=== PATIENT | female | born 2000 | race Caucasian/White ===

== ENCOUNTER 2024-07-19 09:23 | Inpatient (IN) ==
[2024-07-19] MEDS ORDERED: LACTATED RINGER'S 1,000 ML IV PRN (11:17)
--- NOTE | 2024-07-19 11:20 | History & Physical Report ---
Date of Service July 19, 2024 Assessment & Plan (1) Supervision of normal intrauterine in primigravida: Plan: Admit for active labor. IV access, labs, EFM/toco. Is not planning for epidural - would like to proceed with minimal intervention if possible. History of Present Illness Chief Complaint: contractions Primary Care Provider: NO PCP 24yo @ 36 4/, presented to L&D with contractions, increasing overnight. + movement, no vaginal bleeding, no leaking fluid. Allergies Allergy/AdvReac Type Severity Reaction Status Date / Time pollen extracts Allergy Verified 07/16/24 08:47 Home Medications Medication Instructions Recorded Confirmed Type lactobacillus combination no.4 3 3,000 mmu cells PO DAILY 07/19/24 07/19/24 History billion cell capsule (Probiotic) vits no.124-ferrous fum 1 tab PO DAILY 07/19/24 07/19/24 History 27 mg iron-folic acid 800 mcg tablet ( Vitamin) Patient History Surgical History H/O wisdom tooth extraction Family History Grandfather (Paternal) Myocardial infarction Grandfather (Maternal) Myocardial infarction Denies family history of Ovarian cancer Prostate cancer Breast cancer Colorectal cancer Social History (Updated 07/19/24 @ 09:36 by Hailey Stevens RN) Smoking Status: Never smoker Second Hand Exposure: No; Do You Dip or Chew Tobacco: No; Hx Alcohol Use: No Hx Substance Use: No Preferred Language: [place] Communication Ability: Effective Visual Impairment: No Limitations Hearing Ability: Normal Et[employer] Required: No Beliefs That Will Affect Care: None marital status: marital status details: Young (25) [phone] Current Living Situation: Spouse Current Living Situation Comment: lives with spouse, no pets current occupational status: employed current occupation: associate marketing manager Other Information That Helps Us Care for You: No Feels Safe at Home: Yes Safety Concerns: Feels Safe At This Time Childhood Exposure to Second-Hand Smoke: No Diet: regular Dental Care, Regularly: Yes Gender Identity: Female Assistive Devices: Glasses Review of Systems All systems reviewed & are unremarkable except as noted in HPI & below Physical Exam Physical Exam: 3-4cm cervix by RN on arrival, recheck 1 .5h later 5-6/100/-1 cephalic by myself. FHT Cat 1 [place] Q 2-3 Constitutional: WD/WN, vitals as above Respiratory: normal respiratory effort, lungs clear to auscultation no respiratory distress Cardiovascular: Rate/Rhythm: regular rate and regular rhythm Gastrointestinal (Abdomen): Inspection/Auscultation: abdomen normal to inspection Percussion/Palpation: abdomen soft; abdomen nontender Gravid. No s/s chorio or abruption. Skin: no rashes, warm and dry Psychiatric: A+Ox3, euthymic affect Results & Data Vital Signs (Past 12 Hours) Vital Signs Temp Pulse Resp BP 07/19/24 09:38 36.8 C 63 20 130/75 07/19/24 09:31 63 130/75 Coding Level of Care Code None Diagnoses Supervision of normal intrauterine in primigravida Z34.00
[2024-07-19 11:54] LABS: Hematocrit (blood only) 33.7 % (37.0-47.0); Mean Corpuscular Hemoglobin 31.6 pg (25.0-34.0); Mean Corpuscular Hgb Conc 35.6 g/dL (32.0-36.0); Mean Corpuscular Volume 88.7 fL (80.0-100.0); Mean Platelet Volume 12.9 fL (9.4-12.4); Platelet Count 161 K/uL (130-400); Platelet Estimate Normal (Normal); RDW Coefficient of Variation 11.4 % (11.5-14.5); RDW Standard Deviation 36.7 fL (36.4-46.3); White Blood Count 13.94 K/ul (4.8-10.8)
--- NOTE | 2024-07-19 12:32 | Labor Progress Brief Note ---
Date of Service July 19, 2024 Subjective Uncomfortable with contractions. FHT Cat 1 [place] Q 2-3 SVE 6-7/100/-1 AROM clear fluid. Assessment & Plan Admission and Anticipated Discharge Date Admission Date: July 19, 2024 Results & Data Vital Signs (Past 12 Hours) Vital Signs Temp Pulse Resp BP 07/19/24 12:11 87 20 07/19/24 12:11 128/62 07/19/24 09:38 36.8 C 63 20 130/75 07/19/24 09:31 63 130/75 Coding Level of Care Code None
[2024-07-19] MEDS: OXYTOCIN 30 UNITS/NSS 30 UNITS/500 ML BAG IV PRN (13:33)
[2024-07-19] MEDS: LIDOCAINE 1% LOCAL 20 ML VIAL INFIL PRN (13:36)
--- NOTE | 2024-07-19 13:55 | Delivery Summary ---
Vaginal Delivery Summary Date of Service July 19, 2024 Vaginal Delivery Summary and 2nd Degree LAC Vaginal Delivery Summary: Pre-delivery diagnoses: 24yo @ 36 06/29, spontaneous labor Post-delivery diagnoses: same Procedure: spontaneous vaginal delivery Surgeon: Maria E Jerome DO Complications: none Findings: Viable male . Apgars: . Weight pending, please see nursery records Estimated blood loss: Description of delivery: The patient progressed to complete without epidural anesthesia. She then began to push in knee/chest position per her request. She spontaneously vaginally delivered a viable from the cephalic presentation. The head delivered in [place] position, compound hand delivery. The anterior shoulder delivered, followed by the posterior shoulder, followed by the body. The baby was maneuvered through mother's legs and handed to mother and a spontaneous cry was heard. Delayed cord clamping was employed, and the cord was doubly clamped and cut. Cord blood was obtained. The placenta was delivered spontaneously intact with a 3-vessel cord. The uterus and vagina were swept of clots and debris. IV pitocin was given. The uterus became firm. The cervix, vagina, and perineum were inspected and 2nd degree perineal laceration was noted, 1% lidocaine was injected at the site, and repaired with 3-0 Vicryl. Excellent hemostasis was observed. The mother and baby are recovering in stable and good condition in the room. Sponge, needle and instrument counts were correct x 2. Maria E Jerome DO [facility] Vaginal Delivery Charge Vaginal Delivery Codes: 08240 global code for the antepartum, delivery, and post- Delivery Type Details: and 2nd Degree LAC
[2024-07-19] MEDS ORDERED: HYDROCORTISONE ACETATE 25 MG SUPP PR PRN (14:22)
[2024-07-19] MEDS ORDERED: OXYTOCIN 30 UNITS/NSS 30 UNITS/500 ML BAG IV PRN (14:22)
[2024-07-19] MEDS ORDERED: ACETAMINOPHEN 325 MG TAB PO PRN (14:22)
[2024-07-19] MEDS ORDERED: oxyCODONE/ACETAMINOPHEN 5mg/325mg TAB PO PRN (14:22)
[2024-07-19] MEDS ORDERED: bisacodyL 10 MG SUPP PR PRN (14:22)
[2024-07-19] MEDS: IBUPROFEN 600 MG TAB PO PRN (14:36)
[2024-07-19] MEDS: DIPHTHER/TETAN/PERTUS Vaccine (Tdap, Adol/Adult) 0.5mL IM ONE (15:23)
[2024-07-19] MEDS: BENZOCAINE 20% SPRY 85 APPLN/85 GM CAN EXT PRN (16:27)
[2024-07-19] MEDS: DOCUSATE SODIUM 100 MG CAP PO SCH (20:36)
[2024-07-20 06:11] LABS: Hematocrit (blood only) 30.6 % (37.0-47.0); Hemoglobin 10.6 g/dl (12.0-16.0)
--- NOTE | 2024-07-20 08:06 | Obstetrical Progress Note ---
Date of Service July 20, 2024 Assessment & Plan (1) Supervision of normal intrauterine in primigravida: PPD#1 doing well. Routine care. Subjective Ambulation: ambulating normally Voiding: no voiding problems Diet Tolerance:: regular diet Lochia:: Moderate Review of Systems All systems reviewed & are unremarkable except as noted in HPI & below Physical Exam Constitutional WD/WN, vitals as above no acute distress Respiratory normal respiratory effort Cardiovascular Rate/Rhythm: regular rate and regular rhythm Gastrointestinal (Abdomen) Inspection/Auscultation: abdomen normal to inspection; abdomen not distended Percussion/Palpation: abdomen soft Genitourinary OB Exam Abdomen: + fundal height Fundus: + firm; not tender Results & Data Vital Signs (Past 12 Hours) Vital Signs Temp Pulse Resp BP O2 Del Method 07/20/24 04:00 37.1 C 55 L 16 98/58 L Room Air 07/20/24 00:00 36.5 C 62 16 114/65 Room Air
[2024-07-20] MEDS: PRENATAL VITAMIN 1 TAB PO SCH (08:26)
[2024-07-20] MEDS: bisacodyL 5 MG TABEC PO SCH (21:04)
[2024-07-20 21:18] VITALS: O2SAT 98
[2024-07-20 23:52] VITALS: RESP 16
--- NOTE | 2024-07-21 07:48 | Obstetrical Progress Note ---
Date of Service July 21, 2024 Assessment & Plan (1) Encounter for care and examination after delivery: 1 yo PP2 from , doing well -Meeting all pp milestones -O+/rubella immune/ -f/u 6 weeks for appt, dc home Subjective Ambulation: ambulating normally Voiding: no voiding problems Passing Gas:: Yes Diet Tolerance:: regular diet Lochia:: Small Feeding Type:: breast feeding Pain well managed with medication Review of Systems Denies fevers, chills, n/v, VELAZCO, CP, SOB Physical Exam Constitutional WD/WN, vitals as above no acute distress Respiratory normal respiratory effort, lungs clear to auscultation Cardiovascular RRR, no murmur, no edema Gastrointestinal (Abdomen) Percussion/Palpation: abdomen soft; abdomen nontender fundus firm at umbilicus and NT Musculoskeletal BLE symmetric, nonerythematous, nontender Results & Data Vital Signs (Past 12 Hours) Vital Signs Temp Pulse Resp BP Pulse Ox O2 Del Method 07/20/24 23:15 98.1 F 70 16 107/65 98 Room Air 07/20/24 19:58 98.8 F 62 18 117/64 98 Room Air
[2024-07-21 10:11] VITALS: BP 110/66; PULSE 73; TEMP 98.4
== END 2024-07-21 12:03 | disposition home or self-care (01) | DRG 807 ==
LOC: OPB 09:23 → 4S1 09:29 → 4E2 16:39